=== PATIENT | male | born 1980 | race Caucasian/White ===

== ENCOUNTER 2024-08-19 06:40 | Emergency (ER) | payer OTHER ==
[~2024-08-19] VITALS: Ht 172.7 cm; Wt 77.9 kg
--- NOTE | 2024-08-19 08:09 | ED.PDOC ---
Eye-HPI HPI Comments A 44 year old male presents to the ED c/o dental pain and chin swelling. Patient states he has been experiencing a lump/possible dental abscess with dental pain on his front lower gum for the past 4 days. Patient reports he now has a swollen and red lump on his chin and is concerned that this infection may have spread to his chin. Patient notes he has a history of dental abscess in the past and notes his last dental abscess was 1 year ago. Patient reports he has been trying OTC home remedies with no improvement. Denies fever, SOB, chest pain, abdominal pain, nausea, vomiting, diarrhea, headache, dizziness, vision changes, or numbness/tingling of extremities. No other symptoms or modifying factors reported at this time. Patient is alert and oriented x4 and has a stable gait. Chief Complaint: Abscess Time Seen by MD: 06:48 Reviewed Notes: Nurses Notes, Medications, Allergies Allergies: Coded Allergies: NO KNOWN ALLERGIES (Unverified , 08/19/24) Information Source: Patient Mode of Arrival: Ambulatory Timing: Days Duration: Since onset, Days Prehospital treatment: None Quality: Pain, Red Lids: Normal Conjunctiva: Normal Cornea: Normal Pupils: Normal EOM: Normal Fundus: Normal Slit lamp exam: Normal Anterior chamber: Normal Mouth Location: Lower, Tooth/Teeth, Gums Mouth: Lower ENT Ear Exam: Normal, Normal, Normal Nose: Normal Sinuses: Normal Oropharynx: Normal Onset: Spontaneous Throat Exposed to: None History of: None Last Tetanus: Unknown Modifying factors: Nothing Associated signs and symptoms: Tooth Pain Past Medical History PAST MEDICAL HISTORY: Denies Surgical History: Denies all surgeries Family History Family History: Reviewed,noncontributory to illness Social History Smoker: Non-Smoker Alcohol: Denies ETOH Use Drugs: Denies Drug Use Lives In: Home Constitutional: denies: chills, diaphoresis, fatigue, fever, malaise, sweats, weakness, others EENTM: reports: mouth pain (front lower gum pain and swelling); denies: blurred vision, double vision, ear bleeding, ear discharge, ear drainage, ear pain, ear ringing, eye pain, eye redness, hearing loss, mouth swelling, nasal discharge, nose bleeding, nose congestion, nose pain, photophobia, tearing, throat pain, throat swelling, voice changes, others Respiratory: denies: cough, hemoptysis, orthopnea, SOB at rest, shortness of breath, SOB with excertion, stridor, wheezing, others Cardiovascular: denies: chest pain, dizzy spells, diaphoresis, Dyspnea on exertion, edema, irregular heart beat, left arm pain, lightheadedness, palpitations, PND, syncope, others Gastrointestinal: denies: abdomen distended, abdominal pain, blood streaked bowels, constipated, diarrhea, dysphagia, difficulty swallowing, hematemesis, melena, nausea, poor appetite, poor fluid intake, rectal bleeding, rectal pain, vomiting, others Genitourinary: denies: burning, dysuria, flank pain, frequency, hematuria, incontinence, penile discharge, penile sore, pain, testicle pain, testicle swelling, urgency, others Neurological: denies: dizziness, fainting, headache, left sided numbness, left sided weakness, numbness, paresthesia, pre-existing deficit, right sided numbness, right sided weakness, seizure, speech problems, tingling, tremors, weakness, others Musculoskeletal: denies: back pain, gout, joint pain, joint swelling, muscle pain, muscle stiffness, neck pain, others Integumetry: reports: others (Redness and swelling of chin); denies: bruises, change in color, change in hair/nails, dryness, laceration, lesions, lumps, rash, wounds Allergic/Immunocompromised: denies: Difficulty Healing, Frequent Infections, Hives, Itching, others Hematologic/Lymphatic: denies: anemia, blood clots, easy bleeding, easy bruising, swollen glands, others Endocrine: denies: excessive hunger, excessive sweating, excessive thirst, excessive urination, flushing, intolerance to cold, intolerance to heat, unexplained weight gain, unexplained weight loss, others Psychiatric: denies: anxiety, bipolar disorder, depression, hopeless, panic disorder, schizophrenia, sleepless, suicidal, others All Other Systems: Reviewed and Negative Physical Exam General Appearance: No Apparent Distress, Normal HEENT: Normal ENT Inspection, Pharynx Normal, TMs Normal, Other (Missing #31 tooth noted. Visible dental caries noted. Normal uvula noted. 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 No open wound noted. No drainage noted.) Lymphatic: No Adenopathy Was a procedure done? Was a procedure done?: No EENT DIFF Eye: N/A Ear: N/A Nose: N/A Mouth: Other (dental caries, dental abscess, dental infection, gingivitis) Sore Throat: N/A Other Differential Diagnosis chin abscess, soft tissue infection, cellulitis X-Ray, Labs, Meds, VS Vital Signs Date Time Temp Pulse Resp B/P (MAP) Pulse Ox O2 Delivery O2 Flow Rate FiO2 08/19/24 09:31 98.2 84 18 128/85 (99) 100 98.2 08/19/24 06:55 97.5 84 18 152/99 (116) 97 97.5 Lab Test 08/19/24 08:00 Range/Units White Blood Count 10.4 4.4-10.8 10^3/uL Red Blood Count 6.02 H 4.5-5.90 10^6/uL Hemoglobin 16.5 13.5-17.5 g/dL Hematocrit 48.2 41.0-53.0 % Mean Corpuscular Volume 80.1 80.0-100.0 fL Mean Corpuscular Hemoglobin 27.4 L 28.0-32.0 pg Mean Corpuscular Hemoglobin Concent 34.3 32.0-36.0 g/dL Red Cell Distribution Width 13.2 11.8-14.3 % Platelet Count 308 140-450 10^3/uL Mean Platelet Volume 7.2 6.9-10.8 fL Neutrophils (%) (Auto) 73.9 37.0-80.0 % Lymphocytes (%) (Auto) 16.2 10.0-50.0 % Monocytes (%) (Auto) 6.7 0.0-12.0 % Eosinophils (%) (Auto) 2.7 0.0-7.0 % Basophils (%) (Auto) 0.5 0.0-2.0 % Neutrophils # (Auto) 7.7 1.6-8.6 10 ^3/uL Lymphocytes # (Auto) 1.7 0.4-5.4 10 ^3/uL Monocytes # (Auto) 0.7 0-1.3 10 ^3/uL Eosinophils # (Auto) 0.3 0-0.8 10 ^3/uL Basophils # (Auto) 0.1 0-0.2 10 ^3/uL Nucleated Red Blood Cells 0.0 % Sodium Level 142 136-145 mmol/L Potassium Level 3.8 3.5-5.1 mmol/L Chloride Level 110 H 98-107 mmol/L Carbon Dioxide Level 26 20-31 mmol/L Anion Gap 6 5-15 Blood Urea Nitrogen 12 9-23 mg/dL Creatinine 1.09 0.700-1.30 mg/dL Glomerular Filtration Rate Calc 85 >90 mL/min BUN/Creatinine Ratio 11.0 10.0-20.0 Serum Glucose 106 74-106 mg/dL Calcium Level 9.6 8.7-10.4 mg/dL PAT[facility] [id number]: [id number] : 1980 LOC: ER ROOM / BED: / AGE / SEX: 44 / M ADM STATUS: REG ER SERVICE [id number] ORDERING PHYSICIAN: ZACHARIAH RANGEL NP PROCEDURE(s): FACIC - MAXILLOFACIAL WITH REASON: Suspect abscess formation ORDER NUMBER(s): [id number], ACCESSION NUMBER(s): [id number] CLINICAL INDICATION: Suspect abscess formation TECHNIQUE: CT of the facial bones was performed with 100 mL Omnipaque 300 intravenous contrast. Coronal and sagittal reformatted images are submitted. COMPARISON: None CT Dose: CTDI volume is 66.33 mGy. Dose-length product is 1433.62 mGy*cm FINDINGS: There is a peripherally enhancing fluid collection anterior to the mandible which measures 3.5 x 1.4 by 2.9 cm (transverse by AP by craniocaudal). This is consistent with abscess. There is soft tissue thickening and stranding. There is abnormal lucency surrounding a lower right central incisor with cortical defect in the mandible consistent with osteomyelitis. Soft tissues of the neck and deep spaces of the neck are grossly unremarkable. Aerodigestive tract is patent. Mildly prominent cervical lymph nodes. IMPRESSION: 1. 3.5 cm abscess anterior to the mandible (the chin) which appears to be arising from a right lower central incisor periapical abscess with associated erosion of the mandible compatible with osteomyelitis. All CT scans at this medical facility are performed using dose modulation techniques as appropriate to a performed exam including the following: Automated exposure control was utilized; adjustment of the MA and/or KV according to patient size; and use of iterative reconstruction technique. ATED BY: LORRI ESQUIVEL MD DICTATED DATE/TIME: 08/19/241040 SIGNED BY: LORRI ESQUIVEL MD SIGNED DATE/TIME: 08/19/241040 CC: X-Ray, Labs, Meds, VS Comment A 44 year old male presents to the ED c/o dental pain and chin swelling. Patient arrives alert and oriented, ABC's intact, afebrile, vital signs stable, saturating well in room air History and findings consistent with cellulitis vs abscess formation. Patient well appearing. VSS. Given History, Exam, and Workup I have suspicion for Abscess, Osteomyelitis, abscess formation Peripheral IV insertion+ labs were ordered. CBC was ordered to exclude anemia, blood loss, or infection. BMP was ordered to exclude electrolyte abnormalities, renal failure, dehydration, hyperglycemia Radiology imaging ordered: CT MAXILLOFACIAL Results showed: 1. 3.5 cm abscess anterior to the mandible (the chin) which appears to be arising from a right lower central incisor periapical abscess with associated erosion of the mandible compatible with osteomyelitis. Patient was informed about his CT scan results showing an abscess of his mandible and findings consistent with osteomyelitis of his mandible. Patient was informed that due to these results he would need to be transferred to another facility that has ENT capabilities for further treatment and evaluation. Patient fully understood and agreed with my plan of care. Other facilities will be contacted for transfer of this patient. Treatments ordered: ROCEPHIN 1 G IV, VANCOMYCIN 1 G IV, Unasyn 3g IV The patient presents with s/s consistent with the above diagnosis The patient's workup reveals that the patient needs higher level of care possible ENT consultation Patient verbalized understanding of the above 1116: [facility] has been called regarding this patient's case for possible transfer, but they have declined transfer of this patient at this time as they have said they are at capacity. 1130: I have called [facility] and I spoke with Dr. Warren regarding this patient's case, condition, and CT scan results and he has accepted the patient for transfer at this time. Additional MDM Review of External, Non-ED records: External records reviewed if applicable Discussion with independent historian (EMS, family) history obtained from the patient/parents (if applicable) at bedside Chronic conditions affecting care: COPD Social determinants of health affecting care: Tobacco use Procedures Performed: None Critical Care Time: None I have discussed the patient with the attending physician Dr. Preciado and he agrees with the patient's plan of care. Images Reviewed?: Images reviewed and evaluated by me Time of 1ST Reevaluation: 11:00 Reevaluation 1ST: Unchanged Patient Education/Counseling: Diagnosis, Treatment Family Education/Counseling: Diagnosis, Treatment Departure 1 Departure Time of Disposition: 11:52 Impression: Primary Impression: Abscess of mandible Additional Impression: Acute osteomyelitis of mandible Disposition: 02 SHORT TERM HOSPITAL Condition: Serious Critical Care Note Critical Care Time?: No Stability Stability form required: No Heart Score Heart Score: Heart Score Response (Comments) Value History N/A 0 EKG N/A 0 Age N/A 0 Risk Factors N/A 0 Troponin N/A 0 Total 0 I personally scribed for ZACHARIAH RANGEL TOE TRIMMER ([email or web address]) on 08/19/24 at 08:09. Electronically submitted by David Haley ([employer]). I personally scribed for ZACHARIAH RANGEL TOE TRIMMER (DVAYOMA) on 08/19/24 at 10:58. Electronically submitted by David Haley ([employer]). I personally scribed for ZACHARIAH RANGEL TOE TRIMMER (DVAYOMA) on 08/19/24 at 11:37. Electronically submitted by David Haley ([email or web address]). I personally scribed for ZACHARIAH RANGEL TOE TRIMMER (DVAYOMA) on 08/19/24 at 11:38. Electronically submitted by David Haley ([employer]). ZACHARIAH RANGEL NP Aug 19, 2024 08:09
[2024-08-19 08:22] LABS: Basophils # (auto) 0.1 10 ^3/uL (0-0.2); Basophils % (auto) 0.5 % (0.0-2.0); Eosinophils # (auto) 0.3 10 ^3/uL (0-0.8); Eosinophils % (auto) 2.7 % (0.0-7.0); Hematocrit 48.2 % (41.0-53.0); Hemoglobin 16.5 g/dL (13.5-17.5); Lymphocytes # (auto) 1.7 10 ^3/uL (0.4-5.4); Lymphocytes % (auto) 16.2 % (10.0-50.0); Mean Corpuscular Hemoglobin 27.4 pg (28.0-32.0); Mean Corpuscular Hgb Conc. 34.3 g/dL (32.0-36.0); Mean Corpuscular Volume 80.1 fL (80.0-100.0); Monocytes # (auto) 0.7 10 ^3/uL (0-1.3); Monocytes % (auto) 6.7 % (0.0-12.0); Neutrophils # (auto) 7.7 10 ^3/uL (1.6-8.6); Neutrophils % (auto) 73.9 % (37.0-80.0); Platelet Count (auto) 308 10^3/uL (140-450); Red Blood Cells 6.02 10^6/uL (4.5-5.90); Red Cell Distribution Width 13.2 % (11.8-14.3); White Blood Cell 10.4 10^3/uL (4.4-10.8)
[2024-08-19 08:39] LABS: Anion Gap 6 (5-15); Calcium 9.6 mg/dL (8.7-10.4); Carbon Dioxide 26 mmol/L (20-31); Potassium 3.8 mmol/L (3.5-5.1); Sodium 142 mmol/L (136-145)
[2024-08-19 08:40] LABS: Blood Urea Nitrogen 12 mg/dL (9-23); Chloride 110 mmol/L (98-107); Glucose 106 mg/dL (74-106)
[2024-08-19] MEDS: IOHEXOL 300 MG/ML 100ML BOTTLE IJ ONE (09:34)
--- NOTE | 2024-08-19 10:44 | DVH ---
CLINICAL INDICATION: Suspect abscess formation TECHNIQUE: CT of the facial bones was performed with 100 mL Omnipaque 300 intravenous contrast. Dionisio nal and sagittal reformatted images are submitted. COMPARISON: None CT Dose: CTDI volume is 66.33 mGy. Dose-length product is 1433.62 mGy*cm FINDINGS: There is a peripherally enhancing fluid collection anterior to the mandible which measures 3.5 x 1.4 by 2.9 cm (transverse by AP by craniocaudal). This is consistent with abscess. There is so ft tissue thickening and stranding. There is abnormal lucency surrounding a lower right central incis or with cortical defect in the mandible consistent with osteomyelitis. Soft tissues of the neck and deep spaces of the neck are grossly unremarkable. Aerodigestive tract is patent. Mildly prominent cervical lymph nodes. IMPRESSION: 1. 3.5 cm abscess anterior to the mandible (the chin) which appears to be arising from a right lower central incisor periapical abscess with associated erosion of the mandible compatible with osteomyeli tis. All CT scans at this medical facility are performed using dose modulation techniques as appropriate t o a performed exam including the following: Automated exposure control was utilized; adjustment of th e MA and/or KV according to patient size; and use of iterative reconstruction technique.
[2024-08-19] MEDS ORDERED: VANCOMYCIN PER PHARMACY 0 MG IV SCH (11:00)
[2024-08-19] MEDS ORDERED: AMPICILLIN & SULBACTAM SODIUM 3 GM in SODIUM CHL 0.9% 100 ML IV STA (11:37)
[2024-08-19] MEDS ORDERED: VANCOMYCIN 1GM/200ML PM 200 ML IV ONE (12:00)
[2024-08-19] MEDS: cefTRIAXone 2GM/50ML D5W 50 ML IV ONE (12:07)
[2024-08-19 12:42] VITALS: BP 150/106; PULSE 90; RESP 16; TEMP 98.4; O2SAT 96
== END 2024-08-19 13:08 | disposition short-term general hospital (02) ==
LOC: ER 06:45
DX: M27.2 Inflammatory conditions of jaws (principal); L02.01 Cutaneous abscess of face; R42 Dizziness and giddiness
CPT/HCPCS: 36415; 70487; 80048; 85025; 96365; 99285; J0696; Q9967